=== PATIENT | female | born 1985 | race Caucasian/White ===

== ENCOUNTER → 2017-05-23 | Outpatient (CLI) | payer OTHER, BC ==
[2017-05-23 17:49] LABS: HEPATITIS B AB POS
== END | disposition home or self-care (01) ==
LOC: C.LAB1850 14:59
PROVIDERS: ATTEND Nurse Practitioner Adult Health
DX: Z77.21 Contact with and (suspected) exposure to potentially hazardous body fluids (principal)

== ENCOUNTER → 2017-07-04 | Outpatient (CLI) | payer OTHER | END | disposition home or self-care (01) | LOC: C.LAB1850 16:08 → EDSTATUS 07-08 07:35 | PROVIDERS: ATTEND Nurse Practitioner Adult Health | DX: Z20.6 Contact with and (suspected) exposure to human immunodeficiency virus [HIV] (principal) ==

== ENCOUNTER → 2017-08-08 | Outpatient (CLI) | payer OTHER | END | disposition home or self-care (01) | LOC: C.LAB1850 16:28 → EDSTATUS 08-13 08:53 | PROVIDERS: ATTEND Nurse Practitioner Adult Health | DX: Z77.21 Contact with and (suspected) exposure to potentially hazardous body fluids (principal) ==

== ENCOUNTER → 2017-11-21 | Outpatient (CLI) | payer OTHER | END | disposition home or self-care (01) | LOC: C.LAB1850 16:12 | PROVIDERS: ATTEND Nurse Practitioner Adult Health | DX: Z77.21 Contact with and (suspected) exposure to potentially hazardous body fluids (principal); W46.1XXA Contact with contaminated hypodermic needle, initial encounter ==